=== PATIENT | male | born 1975 | race Caucasian/White ===

== ENCOUNTER 2024-03-04 16:13 | Emergency (ER) | payer BC ==
[2024-03-04 16:48] VITALS: BP 125/82; PULSE 89; RESP 18; TEMP 98.4; BMI 25.8
[2024-03-04] MEDS: DALBAVANCIN HCL 1,500 MG in DEXTROSE 5%-WATER - 500 ML IVPB ONE (17:46)
== END 2024-03-04 19:02 | disposition home or self-care (01) ==
LOC: FER 16:13
DX: L03.116 Cellulitis of left lower limb (principal)
CPT/HCPCS: 99284-25; J0875

== ENCOUNTER 2024-03-15 17:53 | Emergency (ER) | payer BC ==
[2024-03-15 18:21] VITALS: BP 126/76; PULSE 58; RESP 16; TEMP 98; BMI 27.3
== END 2024-03-15 19:00 | disposition home or self-care (01) ==
LOC: FER 17:53
DX: M79.89 Other specified soft tissue disorders (principal); T63.441A Toxic effect of venom of bees, accidental (unintentional), initial encounter
CPT/HCPCS: 99283-25